=== PATIENT | male | born 1945 ===

== ENCOUNTER 2020-05-10 05:12 | Observation (INO) | payer MEDICARE ==
[2020-05-10] MEDS ORDERED: PANTOPRAZOLE 40 MG INJ IV ONE (06:31)
[2020-05-10] MEDS ORDERED: ONDANSETRON 4 MG/2 ML INJ IV ONE (06:31)
[2020-05-10] MEDS ORDERED: SODIUM CHLORIDE 0.9% 500 ML 500 ML IV ONE ×2 (06:31→08:50)
[2020-05-10] MEDS ORDERED: ACETAMINOPHEN 650 MG RECT SUPP PR ONE (06:32)
--- NOTE | 2020-05-10 06:33 | Emergency Department Report ---
ED General Adult HPI - General Chief complaint: Nausea/Vomiting/Diarrhea Stated complaint: EMESIS/BLOOD PUI?: No Time Seen by Provider: 05/10/20 06:19 Source: patient, EMS ( EMS documentation not available at time of chart dictation ), RN notes reviewed Mode of arrival: Stretcher Limitations: Other (The patient is demented and a poor historian.) - History of Present Illness Initial comments: The patient was evaluated in the emergency department for symptoms described in the history of present illness. He/she was evaluated in the context of the global COVID-19 pandemic, which necessitated consideration that the patient levi ht be at risk for infection with the virus that causes COVID-19. Institutional protocols and algorithms that pertain to the evaluation of patients at risk for COVID-19 are in a state of rapid change based on information released by regulatory bodies including the CDC and federal and state organizations. These policies and algorithms were followed during the patient's care in the emergency department. Please note that these policies, procedures and recommendations changed on a rapid basis. The patient is a 74-year-old gentleman. He is not known to myself previously. It appears that his attending outpatient physician is Dr. Alphonse Pickett. His past medical history includes Alzheimer's disease, vascular dementia, a aphasia, hyperlipidemia, basal cell carcinoma of the skin and scalp and neck, essential hypertension, constipation, restlessness and agitation. The patient is reportedly sent to the emergency room by a local [facility], [facility], because of a reported history of coffee-ground emesis. The patient is not accompanied by friends or family at this time for additional information or collateral information. The patient himself offers no complaints. Patient is not able to describe the qualitative nature of his symptoms, aggravating, relieving factors, or exacerbating factors. No additional information is available at this time. History of coffee-ground emesis obtained from night nurse, Mr. Du Buckner, who graduate intern received report from EMS, report not currently physically present for me to interview. -: unknown Radiation: other Severity scale (0 -10): 0 Quality: other Consistency: other Improves with: other Worsens with: other Associated Symptoms: other - Related Data Allergies Allergy/AdvReac Type Severity Reaction Status Date / Time No Known Allergies Allergy Unverified 05/10/20 07:39 ED Review of Systems ROS: Stated complaint: EMESIS/BLOOD Other details as noted in HPI Comment: Unobtainable due to pts medical conditions ED Past Medical Hx - Past Medical History Hx Hypertension: Yes Hx CVA: Yes Hx of Cancer: Yes (Skin) Additional medical history: Alzheimers, dementia ED Physical Exam - General Limitations: Other (Patient demented and a poor historian) General appearance: alert, in no apparent distress - Head Head exam: Present: atraumatic, normocephalic - Eye Eye exam: Present: normal appearance - ENT ENT exam: Present: normal exam, mucous membranes dry, normal external ear exam - Neck Neck exam: Present: normal inspection, full ROM. Absent: tenderness, meningismus - Respiratory Respiratory exam: Present: normal lung sounds bilaterally. Absent: respiratory distress, wheezes, rales, rhonchi, stridor, chest wall tenderness, accessory muscle use, prolonged expiratory - Cardiovascular Cardiovascular Exam: Present: normal rhythm, tachycardia, normal heart sounds. Absent: systolic murmur, diastolic murmur, rubs, gallop - GI/Abdominal GI/Abdominal exam: Present: soft. Absent: distended, tenderness, guarding, rebo und, rigid, pulsatile mass - Rectal Rectal exam: Present: normal inspection, normal rectal tone, heme (+) stool, other (Chaperoned by August Jenkins). Absent: decreased rectal tone, black stool, bloody stool - Extremities Exam Extremities exam: Present: normal inspection (Wound dressing is noted to the right upper extremity), other (2+ pulses noted in the bilateral upper and lower extremities. There is no palpable cord. negative Homans sign. Muscular compartments are soft. The pelvis is stable.). Absent: tenderness, calf tenderness - Back Exam Back exam: Present: normal inspection. Absent: tenderness, CVA tenderness (R), CVA tenderness (L), paraspinal tenderness, vertebral tenderness - Neurological Exam Neurological exam: Present: alert (The patient is awake to name. The patient follows commands.), other (There is no facial droop. The tongue is midline. The patient moves 4 extremities spontaneously. Detailed neurologic examination is not possible secondary to dementia) - Psychiatric Psychiatric exam: Present: flat affect - Skin Skin exam: Present: warm ED Course Vital Signs 05/10/20 05/10/20 05/10/20 05:24 05:31 05:45 Temperature 100.1 F H Pulse Rate 96 H 97 H 87 Respiratory 14 13 14 Rate Blood Pressure 130/72 131/66 Blood Pressure 127/75 [Left] O2 Sat by Pulse 98 97 97 Oximetry 05/10/20 05/10/20 05/10/20 06:00 06:15 06:31 Temperature Pulse Rate 102 H 97 H 100 H Respiratory 9 L 9 L 9 L Rate Blood Pressure 133/58 133/77 153/89 Blood Pressure [Left] O2 Sat by Pulse 97 96 97 Oximetry 05/10/20 05/10/20 05/10/20 06:45 07:00 07:15 Temperature Pulse Rate 102 H 100 H 96 H Respiratory 9 L 10 L 10 L Rate Blood Pressure 112/72 120/67 122/74 Blood Pressure [Left] O2 Sat by Pulse 96 97 96 Oximetry 05/10/20 05/10/20 05/10/20 07:20 07:30 07:35 Temperature 100.1 F H Pulse Rate 98 H 94 H Respiratory 18 12 12 Rate Blood Pressure 115/64 115/64 Blood Pressure [Left] O2 Sat by Pulse 97 100 Oximetry 05/10/20 05/10/20 05/10/20 07:45 08:09 08:15 Temperature Pulse Rate 98 H 92 H Respiratory 11 L 13 Rate Blood Pressure 110/71 110/71 115/66 Blood Pressure [Left] O2 Sat by Pulse 95 97 97 Oximetry 05/10/20 05/10/20 05/10/20 08:20 08:30 08:45 Temperature Pulse Rate 94 H 92 H Respiratory 18 8 L 11 L Rate Blood Pressure 119/64 104/63 Blood Pressure [Left] O2 Sat by Pulse 98 94 Oximetry 05/10/20 05/10/20 05/10/20 09:01 09:15 09:30 Temperature Pulse Rate 92 H 88 87 Respiratory 11 L 7 L 10 L Rate Blood Pressure 118/74 113/68 118/73 Blood Pressure [Left] O2 Sat by Pulse 96 98 96 Oximetry 05/10/20 05/10/20 05/10/20 09:45 10:00 10:11 Temperature Pulse Rate 92 H 88 87 Respiratory 8 L 10 L 10 L Rate Blood Pressure 114/63 105/71 105/71 Blood Pressure [Left] O2 Sat by Pulse 96 97 96 Oximetry 05/10/20 05/10/20 05/10/20 10:21 10:30 10:40 Temperature Pulse Rate 83 80 79 Respiratory 10 L 11 L 8 L Rate Blood Pressure 114/72 115/64 110/71 Blood Pressure [Left] O2 Sat by Pulse 97 97 97 Oximetry 05/10/20 05/10/20 11:00 11:12 Temperature 99.0 F Pulse Rate 77 Respiratory 19 Rate Blood Pressure 121/67 120/69 Blood Pressure [Left] O2 Sat by Pulse 97 Oximetry - Reevaluation(s) Reevaluation #1: 05/10/20 07:26 Differential diagnosis, including but not limited to: Pneumonia, urinary tract infection, obstruction, intra-abdominal infection, upper GI bleed Assessment and plan: 74-year-old gentleman, with low-grade rectal temperature of 100.3 degrees, brown stool that is guaiac positive, sent to the emergency room by [facility] with a complaint of coffee-ground emesis, and nausea/vomiting x1. Obtain x-ray of the chest, urinalysis, EKG, basic laboratory studies, CT scan of the abdomen pelvis, start fluids, antiemetics, acetaminophen, and reassess. Reevaluation #2: 05/10/20 08:48 CT scan of the abdomen pelvis shows no acute surgical pathology, esophagitis is suggested. Nursing team unable to advance catheter past prostate, therefore, a condom catheter is placed. Blood cultures and lactic acid will be obtained. Given advanced age, dementia, inability to articulate complaints, evidence of systemic inflammatory response syndrome, manifested by leukocytosis, fever, heart rate greater than 90 bpm, in conjunction with brown stool that is guaiac positive, demonstrating evidence of GI bleed, patient meets criteria for admission/hospitalization. We will discuss with gastroenterology on-call. Hospital physician, Dr. Alcantar to admit 05/10/20 08:49 - Consultations Consultation #1: 05/10/20 09:01 Discussed history, physical, pertinent imaging and laboratory studies with gastroenterology on-call, Dr. Quintana, he is in agreement with this plan of care, and agreeable following consultation. ED Medical Decision Making - Lab Data Result diagrams: 05/10/20 06:48 05/10/20 06:48 Vital Signs 05/10/20 05/10/20 05/10/20 05:24 05:31 05:45 Temperature 100.1 F H Pulse Rate 96 H 97 H 87 Respiratory 14 13 14 Rate Blood Pressure 130/72 131/66 Blood Pressure 127/75 [Left] O2 Sat by Pulse 98 97 97 Oximetry 05/10/20 07:20 Temperature Pulse Rate Respiratory 18 Rate Blood Pressure Blood Pressure [Left] O2 Sat by Pulse Oximetry - EKG Data -: EKG Interpreted by De EKG shows normal: sinus rhythm Rate: tachycardia - EKG Data 05/10/20 07:45 Sinus rhythm, 96 bpm, normal axis, QTC 452 ms, there is motion artifact, the EKG is not a STEMI. There is no prior EKG available for comparison. - Radiology Data Radiology results: report reviewed, image reviewed Print Report Referring Physician: SRINIVAS CHARLES Patient Name: SHRUTI CARDOZA III Date of : 1945 Sex: Male Report Date: 2020-05-10 Report Status: Finalized Findings [facility] [address] [place] [address] XRay Report Signed Patient: SHRUTI CARDOZA III MR#: [id number] : 1945 Acct:[id number] Age/Sex: 74 / M ADM Date: 05/10/20 Loc: ED Attending Dr: Ordering Physician: SRINIVAS CHARLES MD Date of Service: 05/10/20 Procedure(s): XR chest 1V ap Accession Number(s): [id number] cc: SRINIVAS CHARLES MD Fluoro Time In Minutes: CHEST 1 VIEW 05/10/2020 6:05 AM INDICATION / CLINICAL INFORMATION: GI Bleed. COMPARISON: None available. FINDINGS: SUPPORT DEVICES: None. HEART / MEDIASTINUM: Remains moderately enlarged LUNGS / PLEURA: No significant pulmonary or pleural abnormality. No pneumothorax. ADDITIONAL FINDINGS: No significant additional findings. IMPRESSION: 1. Cardiomegaly without CHF Signer Name: Cristobal Colon MD Signed: 05/10/2020 7:08 AM Workstation Name: [id number] Transcribed By: TL Dictated By: Cristobal lucas MD Electronically Authenticated By: Cristobal Colon MD Signed Date/Time: 05/10/20707 DD/ 7 TD/TT: Critical care attestation.: If time is entered above; I have spent that time in minutes in the direct care of this critically ill patient, excluding procedure time. ED Disposition Clinical Impression: SIRS (systemic inflammatory response syndrome), GIB (gastrointestinal bleeding), Dementia Disposition: OP ADMIT IP TO THIS HOSP Is pt being admited?: Yes Does the pt Need Aspirin: No Condition: Fair
--- NOTE | 2020-05-10 07:13 | XRay Report ---
CHEST 1 VIEW 05/10/2020 6:05 AM INDICATION / CLINICAL INFORMATION: GI Bleed. COMPARISON: None available. FINDINGS: SUPPORT DEVICES: None. HEART / MEDIASTINUM: Remains moderately enlarged LUNGS / PLEURA: No significant pulmonary or pleural abnormality. No pneumothorax. ADDITIONAL FINDINGS: No significant additional findings. IMPRESSION: 1. Cardiomegaly without CHF Signer Name: Cristobal Colon MD Signed: 05/10/2020 7:08 AM Workstation Name: [id number]
[2020-05-10 07:22] LABS: Basophils % (Auto) 0.3 % (0.0-1.8); Eosinophils % (Auto) 0.3 % (0.0-4.3); Hematocrit 38.9 % (35.5-45.6); Hemoglobin 13.4 gm/dl (11.8-15.2); Lymphocytes # (Auto) 0.6 K/mm3 (1.2-5.4); Lymphocytes % (Auto) 4.4 % (13.4-35.0); Mean Corpuscular HGB Conc 35 % (32-34); Mean Corpuscular Volume 87 fl (84-94); Monocytes # (Auto) 0.8 K/mm3 (0.0-0.8); Monocytes % (Auto) 5.8 % (0.0-7.3); Platelet Count 233 K/mm3 (140-440); Red Blood Count 4.49 M/mm3 (3.65-5.03); Red Cell Distribution Width 13.9 % (13.2-15.2)
[2020-05-10 07:29] LABS: Alanine Aminotransferase 10 units/L (7-56); Albumin 3.7 g/dL (3.9-5); BUN/Creatinine Ratio 17; Blood Urea Nitrogen 15 mg/dL (9-20); Hemolysis Index 6
[2020-05-10 07:30] LABS: INR 1.05 (0.87-1.13)
--- NOTE | 2020-05-10 08:30 | Cat Scan Report ---
CT ABDOMEN AND PELVIS WITH CONTRAST INDICATION / CLINICAL INFORMATION: Nausea and vomiting. Hematemesis. Low-grade fever. TECHNIQUE: Axial CT images were obtained through the abdomen and pelvis after 100 mL Omnipaque [address] scans at this location are performed using CT dose reduction for ALARA by means of automated exposure control. COMPARISON: None available. FINDINGS: LOWER CHEST: Mild thickening and edema of the distal esophagus. Lung bases appear clear. LIVER: No significant abnormality. GALLBLADDER: No significant abnormality. BILE DUCTS: No significant abnormality. PANCREAS: No significant abnormality. SPLEEN: No significant abnormality. ADRENALS: No significant abnormality. RIGHT KIDNEY / URETER: No significant abnormality. LEFT KIDNEY / URETER: No significant abnormality. STOMACH / SMALL BOWEL: No significant abnormality. COLON: No significant abnormality. APPENDIX: Not visualized. PERITONEUM: No free fluid. No free air. No fluid collection. LYMPH NODES: No significant adenopathy. AORTA / ARTERIES: Mild atherosclerotic calcification without acute abnormality. IVC / VEINS: No significant abnormality. URINARY BLADDER: No significant abnormality. REPRODUCTIVE ORGANS: No significant abnormality. ADDITIONAL FINDINGS: Small bilateral fat-containing inguinal hernias. SKELETAL SYSTEM: No significant abnormality. IMPRESSION: 1. No inflammatory process or bowel obstruction. 2. Thickening and edema of the distal esophagus may be related to recent vomiting. Signer Name: Renae Reyna MD Signed: 05/10/2020 8:26 AM Workstation Name: [id number]
[2020-05-10] MEDS ORDERED: cefTRIAXone/NS 1 GM/50 ML 1 GM/50 ML BAG IV ONE ×2 (08:46→10:34)
[2020-05-10] MEDS ORDERED: SODIUM CHLORIDE 0.9% 500 ML 500 ML ONE (10:34)
[2020-05-10 11:11] LABS: Bacteria,Urine 1+ /HPF (Negative); Bilirubin,Urine NEG (Negative); Blood,Urine MOD (Negative); Color,Urine Yellow (Yellow); Mucus,Urine 3+ /HPF; Urobilinogen,Urine < 2.0 mg/dL (<2.0)
--- NOTE | 2020-05-10 11:34 | Gastroenterology Consultation ---
History of Present Illness - Reason for Consult Consult date: 05/10/20 Coffee Ground Emesis Requesting physician: TERRENCE RIOS - History of Present Illness The patient is a pleasant demented patient transferred from the [place] for C[facility]. He is unable to provide history, but can answer simple questions and follow all commands. He had a CT in the ER last night that showed esophagitis (likely from chronic reflux or regurgitation). His labs indicate a mild UTI, for which he is now on abx. He has had no emesis since admit and no melena. He has a normal hct. There are no old endoscopy documents in the chart. Past History Past Medical History: hypertension, stroke, other (Dementia (vascular v Alzheimers)) Past Surgical History: No surgical history Social history: no significant social history Family history: no significant family history Medications and Allergies Allergies Allergy/AdvReac Type Severity Reaction Status Date / Time No Known Allergies Allergy Unverified 05/10/20 07:39 Active Meds: Active Medications Ceftriaxone Sodium (Rocephin/Ns 1 Gm/50 Ml) 1 gm in 50 mls @ 100 mls/hr IV Q24HR PEGGY; Protocol I HAVE REVIEWED AND RECONCILED MEDS Review of Systems - Review of Systems ROS unobtainable: due to mental status Exam - Constitutional Vital Signs: Temp Pulse Resp BP Pulse Ox 100.1 F H 88 10 L 105/71 97 05/10/20 07:35 05/10/20 10:00 05/10/20 10:00 05/10/20 10:00 05/10/20 10:00 General appearance: no acute distress - EENT Eyes: PERRL, EOM intact ENT: hearing intact, clear oral mucosa, no thrush - Neck Neck: supple, normal ROM - Respiratory Respiratory effort: normal Respiratory: bilateral: CTA - Cardiovascular Rhythm: regular Heart Sounds: Present: S1 & S2 Extremities: no ischemia, No edema - Gastrointestinal General gastrointestinal: Present: soft, non-tender, non-distended - Integumentary Integumentary: Present: clear, warm, dry - Neurologic Neurological: oriented to person, strength equal bilaterally - Labs CBC & Chem 7: 05/10/20 06:48 05/10/20 06:48 Lab Results: Laboratory Results - last 24 hr 05/10/20 05/10/20 05/10/20 06:48 06:48 06:48 WBC 14.2 H RBC 4.49 Hgb 13.4 Hct 38.9 MCV 87 MCH 30 MCHC 35 H RDW 13.9 Plt Count 233 Lymph % (Auto) 4.[address] [place] % (Auto) 5.8 Eos % (Auto) 0.3 Baso % (Auto) 0.3 Lymph # (Auto) 0.[address] [place] # (Auto) 0.8 Eos # (Auto) 0.0 Baso # (Auto) 0.0 Seg Neutrophils % 89.2 H Seg Neutrophils # 12.6 H PT 13.8 INR 1.05 Sodium 142 Potassium 3.5 L Chloride 102.5 Carbon Dioxide 27 Anion Gap 16 BUN 15 Creatinine 0.9 Estimated GFR > 60 BUN/Creatinine Ratio 17 Glucose 115 H Lactic Acid Calcium 9.0 Magnesium 1.90 Total Bilirubin 0.70 AST 14 ALT 10 Alkaline Phosphatase 138 H Total Creatine Kinase Total Protein 6.2 L Albumin 3.7 L Albumin/Globulin Ratio 1.5 Lipase 15 Urine Color Urine Turbidity Urine pH Ur Specific [place] Urine Protein Urine Glucose (UA) Urine Ketones Urine Blood Urine Nitrite Urine Bilirubin Urine Urobilinogen Ur Leukocyte Esterase Urine WBC (Auto) Urine RBC (Auto) U Epithel Cells (Auto) Urine Bacteria (Auto) Urine Mucus 05/10/20 05/10/20 05/10/20 06:48 06:48 Unknown WBC RBC Hgb Hct MCV MCH MCHC RDW Plt Count Lymph % (Auto) [place] % (Auto) Eos % (Auto) Baso % (Auto) Lymph # (Auto) [place] # (Auto) Eos # (Auto) Baso # (Auto) Seg Neutrophils % Seg Neutrophils # PT INR Sodium Potassium Chloride Carbon Dioxide Anion Gap BUN Creatinine Estimated GFR BUN/Creatinine Ratio Glucose Lactic Acid 1.20 Calcium Magnesium Total Bilirubin AST ALT Alkaline Phosphatase Total Creatine Kinase 114 Total Protein Albumin Albumin/Globulin Ratio Lipase Urine Color Yellow Urine Turbidity Clear Urine pH 6.0 Ur Specific [place] > 1.059 H Urine Protein 30 mg/dl Urine Glucose (UA) Neg Urine Ketones Neg Urine Blood Mod Urine Nitrite Neg Urine Bilirubin Neg Urine Urobilinogen < 2.0 Ur Leukocyte Esterase Tr Urine WBC (Auto) 15.0 H Urine RBC (Auto) 79.0 U Epithel Cells (Auto) < 1.0 Urine Bacteria (Auto) 1+ Urine Mucus 3+ Assessment and Plan - Patient Problems (1) Coffee ground emesis Current Visit: Yes Status: Acute Plan to address problem: - Likely from underlying reflux esophagitis, and probably N/V triggered by underlying UTI. - Hct is WNL, and no melena or hemodynamic instability. - Will defer endoscopy at present, and place on protonix. - Since no further N/V on abx for the UTI, and he is stable, I will advance diet. - Will sign off; please call if needed.
[2020-05-10] MEDS ORDERED: ACETAMINOPHEN 325 MG TAB PO PRN (11:39)
[2020-05-10] MEDS ORDERED: ONDANSETRON 4 MG/2 ML INJ IV PRN (11:39)
[2020-05-10] MEDS ORDERED: SODIUM CHLORIDE 0.9% 1000 ML 1,000 ML IV SCH (11:45)
--- NOTE | 2020-05-10 11:45 | History and Physical Report ---
History of Present Illness Date of examination: 05/10/20 Date of admission: 05/10/20 08:51 Chief complaint: Coffee-ground emesis History of present illness: 74-year-old pleasantly demented male was presented via EMS from custodial for the complaints of coffee-ground emesis. Patient is not able to give any history and history is obtained from the chart. Patient was alert and follows simple commands, cooperative. Patient has low-grade fever. Per chart review patient has Alzheimer's dementia, hyperlipidemia, basal cell carcinoma of the scalp in the neck, hypertension, constipation. The emergency department rectal examination was done and had brown stool. H&H was stable. Patient has low-grade fever and UA suggestive of UTI. CT abdomen and pelvis was done and showed thickening of the esophagus, no other abnormality. Patient was started with IV ceftriaxone. GI was consulted in the emergency department and patient is admitted. Review of system could not be obtained because the patient is severely demented. Past History Past Medical History: hypertension, stroke, other (Dementia (vascular v Alzheimers)) Past Surgical History: No surgical history Social history: no significant social history. denies: smoking, alcohol abuse, IV drug use Family history: no significant family history Medications and Allergies Allergies Allergy/AdvReac Type Severity Reaction Status Date / Time No Known Allergies Allergy Unverified 05/10/20 07:39 Active Meds: Active Medications Acetaminophen (Tylenol) 650 mg PO Q4H PRN PRN Reason: Pain MILD(1-3)/Fever >100.5/DEVINE Ceftriaxone Sodium (Rocephin/Ns 1 Gm/50 Ml) 1 gm in 50 mls @ 100 mls/hr IV Q24HR PEGGY; Protocol Sodium Chloride (Nacl 0.9% 1000 Ml) 1,000 mls @ 75 mls/hr IV DIRECT PEGGY Ondansetron HCl (Zofran) 4 mg IV Q8H PRN PRN Reason: Nausea And Vomiting Pantoprazole Sodium (Protonix) 40 mg PO QDAC PEGGY Sodium Chloride (Sodium Chloride Flush Syringe 10 Ml) 10 ml IV BID PEGGY Sodium Chloride (Sodium Chloride Flush Syringe 10 Ml) 10 ml IV PRN PRN PRN Reason: LINE FLUSH Review of Systems ROS unobtainable: due to mental status (Severe dementia) Exam - Physical Exam Narrative exam: Not in cardiopulmonary distress. The patient appeared well nourished and normally developed. Vital signs as documented. Head exam is unremarkable. No scleral icterus . Neck is without jugular venous distension, thyromegaly, or carotid bruits. Lungs are clear to auscultation. Cardiac exam reveals regular rate and Rhythm. Abdominal exam reveals normal bowel sounds, nontender, no organomegaly. Extremities are nonedematous and both femoral and pedal pulses are normal. CONTROL ROOM HELPER: Alert but not oriented. - Constitutional Vitals: Temp Pulse Resp BP Pulse Ox 100.1 F H 88 10 L 105/71 97 05/10/20 07:35 05/10/20 10:00 05/10/20 10:00 05/10/20 10:00 05/10/20 10:00 Results - Labs CBC & Chem 7: 05/10/20 06:48 05/10/20 06:48 Labs: Laboratory Last Values WBC 14.2 K/mm3 (4.5-11.0) H 05/10/20 06:48 RBC 4.49 M/mm3 (3.65-5.03) 05/10/20 06:48 Hgb 13.4 gm/dl (11.8-15.2) 05/10/20 06:48 Hct 38.9 % (35.5-45.6) 05/10/20 06:48 MCV 87 fl (84-94) 05/10/20 06:48 MCH 30 pg (28-32) 05/10/20 06:48 MCHC 35 % (32-34) H 05/10/20 06:48 RDW 13.9 % (13.2-15.2) 05/10/20 06:48 Plt Count 233 K/mm3 (140-440) 05/10/20 06:48 Lymph % (Auto) 4.4 % (13.4-35.0) L 05/10/20 06:48 [place] % (Auto) 5.8 % (0.0-7.3) 05/10/20 06:48 Eos % (Auto) 0.3 % (0.0-4.3) 05/10/20 06:48 Baso % (Auto) 0.3 % (0.0-1.8) 05/10/20 06:48 Lymph # (Auto) 0.6 K/mm3 (1.2-5.4) L 05/10/20 06:48 [place] # (Auto) 0.8 K/mm3 (0.0-0.8) 05/10/20 06:48 Eos # (Auto) 0.0 K/mm3 (0.0-0.4) 05/10/20 06:48 Baso # (Auto) 0.0 K/mm3 (0.0-0.1) 05/10/20 06:48 Seg Neutrophils % 89.2 % (40.0-70.0) H 05/10/20 06:48 Seg Neutrophils # 12.6 K/mm3 (1.8-7.7) H 05/10/20 06:48 PT 13.8 Sec. (12.2-14.9) 05/10/20 06:48 INR 1.05 (0.87-1.13) 05/10/20 06:48 Sodium 142 mmol/L (137-145) 05/10/20 06:48 Potassium 3.5 mmol/L (3.6-5.0) L 05/10/20 06:48 Chloride 102.5 mmol/L (98-107) 05/10/20 06:48 Carbon Dioxide 27 mmol/L (22-30) 05/10/20 06:48 Anion Gap 16 mmol/L 05/10/20 06:48 BUN 15 mg/dL (9-20) 05/10/20 06:48 Creatinine 0.9 mg/dL (0.8-1.3) 05/10/20 06:48 Estimated GFR > 60 ml/min 05/10/20 06:48 BUN/Creatinine Ratio 17 % 05/10/20 06:48 Glucose 115 mg/dL (75-100) H 05/10/20 06:48 Lactic Acid 1.20 mmol/L (0.7-2.0) 05/10/20 06:48 Calcium 9.0 mg/dL (8.4-10.2) 05/10/20 06:48 Magnesium 1.90 mg/dL (1.7-2.3) 05/10/20 06:48 Total Bilirubin 0.70 mg/dL (0.1-1.2) 05/10/20 06:48 AST 14 units/L (5-40) 05/10/20 06:48 ALT 10 units/L (7-56) 05/10/20 06:48 Alkaline Phosphatase 138 units/L (35-129) H 05/10/20 06:48 Total Creatine Kinase 114 units/L (55-170) 05/10/20 06:48 Total Protein 6.2 g/dL (6.3-8.2) L 05/10/20 06:48 Albumin 3.7 g/dL (3.9-5) L 05/10/20 06:48 Albumin/Globulin Ratio 1.5 % 05/10/20 06:48 Lipase 15 units/L (13-60) 05/10/20 06:48 Urine Color Yellow (Yellow) 05/10/20 Unknown Urine Turbidity Clear (Clear) 05/10/20 Unknown Urine pH 6.0 (5.0-7.0) 05/10/20 Unknown Ur Specific [place] > 1.059 (1.003-1.030) H 05/10/20 Unknown Urine Protein 30 mg/dl mg/dL (Negative) 05/10/20 Unknown Urine Glucose (UA) Neg mg/dL (Negative) 05/10/20 Unknown Urine Ketones Neg mg/dL (Negative) 05/10/20 Unknown Urine Blood Mod (Negative) 05/10/20 Unknown Urine Nitrite Neg (Negative) 05/10/20 Unknown Urine Bilirubin Neg (Negative) 05/10/20 Unknown Urine Urobilinogen < 2.0 mg/dL (<2.0) 05/10/20 Unknown Ur Leukocyte Esterase Tr (Negative) 05/10/20 Unknown Urine WBC (Auto) 15.0 /HPF (0.0-6.0) H 05/10/20 Unknown Urine RBC (Auto) 79.0 /HPF (0.0-6.0) 05/10/20 Unknown U Epithel Cells (Auto) < 1.0 /HPF (0-13.0) 05/10/20 Unknown Urine Bacteria (Auto) 1+ /HPF (Negative) 05/10/20 Unknown Urine Mucus 3+ /HPF 05/10/20 Unknown Microbiology: Microbiology 05/10/20 09:19 Peripheral/Venous Blood Culture - Preliminary Culture in Progress 05/10/20 09:19 Peripheral/Venous Blood Culture - Preliminary Culture in Progress Malhotra/IV: IV Catheter Type [Left Forearm INT / Saline Lock ] Assessment and Plan Assessment and plan: Upper GI bleed due to esophagitis/GERD -H&H is stable -GI saw the patient in the emergency department and recommended no EGD. He put the patient on IV pantoprazole. Sepsis due to UTI -Evidenced by leukocytosis, tachycardia and low-grade fever -Patient started with IV ceftriaxone and is on IV fluids -We will follow blood and urine culture Alzheimer's dementia -Supportive care DVT prophylaxis SCDs There are no home medications obtained in the chart to reconcile. Disposition; admit to medical floor. Advance Directives: Yes Contraindication Mechanical VTE Prophylaxis: Contraindicated Reason for no VTE Prophylaxis: Bleeding Plan of care discussed with patient/family: No
--- NOTE | 2020-05-10 17:08 | Discharge Summary ---
Providers - Providers Date of Admission: 05/10/20 08:51 Date of discharge: 05/10/20 Attending physician: TERRENCE RIOS MD 05/10/20 08:48 Consult to Physician [CONS] Urgent Comment: Consulting Provider: STAN ALMONTE Physician Instructions: Reason For Exam: gib Primary care physician: STAFF PSYCHOLOGIST Hospitalization Reason for admission: sepsis due to UTI, upper GI bleed Condition: Fair Hospital course: 74-year-old pleasantly demented male was presented via EMS from [facility] for the complaints of coffee-ground emesis. Patient is not able to give any history and history is obtained from the chart. Patient was alert and follows simple commands, cooperative. Patient has low-grade fever. Per chart review patient has Alzheimer's dementia, hyperlipidemia, basal cell carcinoma of the scalp in the neck, hypertension, constipation. The emergency department rectal examination was done and had brown stool. H&H was stable. Patient has low-grade fever and UA suggestive of UTI. CT abdomen and pelvis was done and showed thickening of the esophagus, no other abnormality. Patient was started with IV ceftriaxone. GI was consulted in the emergency department and patient is admitted. Review of system could not be obtained because the patient is severely demented. Patient was admitted to the floor and was started with on IV ceftriaxone, IV fluids planned on IV pantoprazole. I called his Elham at [phone] and she told me that her is on hospice and she does not want any treatment and asked me to discharge him back to the nursing facility where he came from. I called manager of application development Emily at [phone] and she confirmed that patient is on hospice and does not need treatment. [facility] should not have sent the patient to the hospital before they contacted the hospice facility or his . I discharged the patient back to the facility with hospice. Hence the patient is on hospice patient does not need to be on any medications. His wants comfort measures. Disposition: [id number] ([facility]) Time spent for discharge: 32 minutes - Discharge Diagnoses (1) Coffee ground emesis Status: Acute (2) Dementia Status: Acute (3) Sepsis Status: Acute Core Measure Documentation - Palliative Care Palliative Care/ Comfort Measures: Hospice Care - Core Measures Any of the following diagnoses?: none Exam - Physical Exam Narrative exam: Not in cardiopulmonary distress. The patient appeared well nourished and normally developed. Vital signs as documented. Head exam is unremarkable. No scleral icterus . Neck is without jugular venous distension, thyromegaly, or carotid bruits. Lungs are clear to auscultation. Cardiac exam reveals regular rate and Rhythm. Abdominal exam reveals normal bowel sounds, nontender, no organomegaly. Extremities are nonedematous and both femoral and pedal pulses are normal. PUBLIC SAFETY DISPATCHER: Alert but not oriented. - Constitutional Vitals: Temp Pulse Resp BP Pulse Ox 99.0 F 77 19 120/69 97 05/10/20 11:12 05/10/20 11:12 05/10/20 11:12 05/10/20 11:12 05/10/20 11:12 Plan Activity: advance as tolerated Weight Bearing Status: Weight Bear as Tolerated Diet: regular Follow up with: PRIMARY CAREMD [Primary Care Provider] - 3-5 Days
[2020-05-10] MEDS ORDERED: DOCUSATE SODIUM 100 MG CAP PO SCH (22:00)
[2020-05-10 22:30] VITALS: BP 125/71
[2020-05-11] MEDS ORDERED: PANTOPRAZOLE 40 MG TAB PO SCH (07:30)
[2020-05-11] MEDS ORDERED: cefTRIAXone/NS 1 GM/50 ML 1 GM/50 ML BAG IV SCH (10:00)
== END 2020-05-11 04:00 | disposition hospice, inpatient (51) ==
LOC: ED 05:12 → 3A 08:51
PROVIDERS: ADMIT Internal Medicine; ATTEND Internal Medicine
DX: K92.2 Gastrointestinal hemorrhage, unspecified (principal); A41.9 Sepsis, unspecified organism; G30.9 Alzheimer's disease, unspecified; F02.80 Dementia in other diseases classified elsewhere, unspecified severity, without behavioral disturbance, psychotic disturbance, mood disturbance, and anxiety; I10 Essential (primary) hypertension; R47.01 Aphasia; Z86.73 Personal history of transient ischemic attack (TIA), and cerebral infarction without residual deficits
CPT/HCPCS: 36415; 71045; 74177; 80053; 81001; 82140; 82550; 83690; 83735; 85025; 85610; 87040; 87086; 93005; 96361; 96365; 96375; 99285; C9113; G0378; J0696; J2405; J7030; J7040; Q9967